=== PATIENT | female | born 1990 | race Hispanic/Latino ===

== ENCOUNTER 2020-02-22 12:58 | Outpatient (CLI) | payer OTHER ==
--- NOTE | 2020-02-22 15:05 | ULT ---
EXAM: COMPLETE OB ULTRASOUND GREATER THAN 14 WEEKS: 02/22/20 HISTORY: anatomy, cervical length. FINDINGS: single viable intrauterine fetus is noted with transverse lie with head on the maternal right s anjana. Placenta is anterior and fundal. heart rate 140 bpm. Amniotic fluid within normal limits. Cervical length 4.6 cm. anatomy: Visualized brain, four chamber heart, three vessel cord, stomach, bladder, kidneys, spine, and extremity regions are unremarkable. biometry: BPD 4.9 cm - - 20 weeks, 6 days Head circumference 18 cm - - 20 weeks, 3 days Abdominal circumference 15.5 cm - - 20 weeks, 5 days Femur length 3.3 cm - - 20 weeks, 2 days IMPRESSION: Single viable intrauterine fetus 20 weeks, 4 days of gestation. ADAMS 06/30/2020. Estimated weight 357 grams. POS: OFF
== END 2020-02-22 12:59 | disposition home or self-care (01) ==
LOC: BICULT 12:58
PROVIDERS: ATTEND Family Medicine
DX: Z34.02 Encounter for supervision of normal first pregnancy, second trimester (principal); Z3A.20 20 weeks gestation of pregnancy
CPT/HCPCS: 76805

== ENCOUNTER 2020-04-13 16:21 | Day surgery (SDC) | payer OTHER ==
[2020-04-13] MEDS ORDERED: hydrALAZINE 20 MG/ML VIAL SLOW IVP PRN (17:38)
[2020-04-13 18:43] LABS: Bacteria/HPF None Seen HPF (None Seen); Bilirubin Negative (Negative); Blood, Urine Negative (Negative); Clarity Clear (Clear); Glucose, Urine (Dipstick) Normal (Negative); Ketone, Urine 80 mg/dL (Negative); Leukocyte Negative Leu/uL (Negative); Nitrite Negative (Negative); Protein, Urine (Dipstick) 10 mg/dL (Neg-Trace); RBC/HPF 0-3 HPF (0-3); Specific Gravity, Urine 1.021 (1.002-1.036); Squamous Epithelial 0-3 HPF (0-3); Urobilinogen Normal mg/dL (Less than 2); WBC/HPF 0-3 HPF (0-3); pH, Urine 5.5 (5.0-9.0)
[2020-04-13 18:58] LABS: Urine Culture Reflex No No
--- NOTE | 2020-04-14 07:00 | PRG ---
DATE OF SERVICE: 04/13/2020 TIME OF SERVICE: 1905 hours. PRESENTING COMPLAINT: A 28 weeks 4 days complaining of urinary frequency and vaginal pressure. She denies bleeding, fever, chills, nausea, or vomiting. The patient has had uncomplicated . OB HISTORY: O positive. Antibody negative. Pap negative. Rubella immune. VDRL nonreactive. Hepatitis B, GC, chlamydia negative. MEDICAL HISTORY: None. SURGICAL HISTORY: None. ALLERGIES: NONE. MEDICATIONS: vitamins. SOCIAL HISTORY: Denies tobacco, alcohol, or drug use. FAMILY HISTORY: Noncontributory. REVIEW OF SYSTEMS: Noncontributory. PHYSICAL EXAMINATION: GENERAL: female, in no acute distress. VITAL SIGNS: Blood pressure 124/77, pulse 69, respirations 14, and temperature 98.1. HEENT: Within normal limits. LUNGS: Clear to auscultation bilaterally. HEART: Regular rate and rhythm. ABDOMEN: Soft and nontender. FHTs 140s. Fundal height 29. No CVA tenderness noted. Vulva without lesions, vagina without discharge, cervix closed long and high. EXTREMITIES: Without clubbing, cyanosis, or edema. LABORATORY DATA: The patient had a cath UA performed, which revealed specific gravity 1.02, 10 urine protein, normal glucose, 80 ketones, no rbc's, no wbc's, no bacteria. IMPRESSION: 1. Discomforts of . 2. Mild dehydration. 3. No evidence of urinary tract infection. 4. 28 weeks to 29 weeks gestation. PLAN: P.o. hydration encouraged. Discharge home. Keep scheduled followup. Job ID: [id number]
[2020-04-14] MEDS ORDERED: FLU VACC QS2020-21(6MOS UP)/PF 60 MCG/0.5 ML SYRINGE IM ONE (09:00)
== END 2020-04-13 19:15 ==
LOC: L&D/OP 16:21
PROVIDERS: ATTEND Family Medicine
DX: O26.893 Other specified pregnancy related conditions, third trimester (principal); R10.2 Pelvic and perineal pain; R35.0 Frequency of micturition; O99.283 Endocrine, nutritional and metabolic diseases complicating pregnancy, third trimester; E86.0 Dehydration; Z3A.28 28 weeks gestation of pregnancy
CPT/HCPCS: 81001

== ENCOUNTER 2020-06-09 16:57 | Inpatient (IN) | payer OTHER, SELFPAY ==
[~2020-06-09 16:57] MED LIST: Bupivacaine 0.25% HCL 30 ML VIAL ONE
[2020-06-09] MEDS ORDERED: hydrALAZINE 20 MG/ML VIAL SLOW IVP PRN (17:54)
[2020-06-09] MEDS ORDERED: Promethazine HCl 25 MG/ML VIAL IM PRN (17:54)
[2020-06-09] MEDS ORDERED: Carboprost 250 MCG/ML AMP IM PRN (17:54)
[2020-06-09] MEDS ORDERED: Butorphanol Tartrate 1 MG/ML VIAL SLOW IVP PRN (17:54)
[2020-06-09] MEDS ORDERED: NS w/ Oxytocin 30 units 500 ML IV PRN (17:54)
[2020-06-09] MEDS ORDERED: Lidocaine 1% (PF) 30 ML VIAL SC PRN (17:54)
[2020-06-09] MEDS ORDERED: Ondansetron PF 4 MG/2 ML Vial IVP PRN (17:54)
[2020-06-09] MEDS ORDERED: Diphenoxylate HCl/Atropine Tablet PO PRN (17:54)
[2020-06-09] MEDS ORDERED: Methylergonovine 0.2 MG/ML VIAL IM PRN (17:54)
[2020-06-09] MEDS ORDERED: Ibuprofen 800 MG TAB PO PRN (17:54)
[2020-06-09] MEDS ORDERED: Misoprostol 200 MCG TAB PR PRN (17:54)
[2020-06-09] MEDS ORDERED: HYDROcodone/Acetaminophen 5/325 mg Tablet PO PRN (17:54)
[2020-06-09] MEDS ORDERED: NS w/ Oxytocin 30 units 500 ML IVPB SCH ×2 (18:15)
[2020-06-09 18:17] VITALS: BMI 38.2
[2020-06-09 18:31] LABS: Hemoglobin 12.8 g/dL (12.0-16.0); Mean Corpuscular HGB CONC 33.7 g/dL (32.0-36.0); Mean Corpuscular Hemoglobin 30.8 pg (27.0-31.0); Mean Corpuscular Volume 91.3 fL (78.0-98.0); Mean Platelet Volume 9.8 fL (7.4-10.4); Platelet Count 245 thou/uL (130-400); Red Blood Cell (RBC) Count 4.18 mill/uL (4.20-5.40); White Blood Cell (WBC) Count 13.1 thou/uL (4.8-10.8)
[2020-06-09 19:07] LABS: HBSAg Index 0.17 S/CO (0-0.99); Hep B Surf Ag Non-Reactive S/CO (NonReactive); Syphilis Antibody Nonreactive (Nonreactive); Syphilis Antibody Index 0.03 S/CO (<1.00 Non-Reactive)
[2020-06-09 19:10] LABS: ALT (SGPT) 91 U/L (8-55); AST (SGOT) 103 U/L (5-34); Albumin 3.3 g/dL (3.5-5.0); Alkaline Phosphatase 374 U/L (40-110); Anion Gap 17 mmol/L (10-20); BUN (Urea Nitrogen) 8 mg/dL (7.0-18.7); Bilirubin, Total 0.4 mg/dL (0.2-1.2); Calc. Creatinine Clearance 139 mL/min (70-130); Calcium 8.6 mg/dL (7.8-10.44); Carbon Dioxide 18 mmol/L (22-29); Chloride 107 mmol/L (98-107); Globulin 3.4 g/dL (2.4-3.5); Glucose 108 mg/dL (70-105); Potassium 4.3 mmol/L (3.5-5.1); Protein, Total 6.7 g/dL (6.0-8.3); Sodium 138 mmol/L (136-145)
[2020-06-09] MEDS: Misoprostol 100 MCG TAB VAG SCH (21:05)
[2020-06-09 21:42] LABS: Protein, Urine Random Quant Less than 10 mg/dL (1-14)
[2020-06-10] MEDS: Misoprostol 100 MCG TAB VAG SCH ×3 (00:05→17:17)
[2020-06-10 04:45] LABS: SARS-CoV-2 MS2 Positive; SARS-CoV-2 N Gene Negative; SARS-CoV-2 S Gene Negative; SARS-CoV-2 by NAA Not Detected (NotDetected); SARS-CoV-2 orf1ab Negative
[2020-06-10] MEDS ORDERED: Terbutaline Sulfate 1 MG/ML VIAL ONE (06:13)
[2020-06-10] MEDS: Lactated Ringer's 1,000 ML IV SCH ×2 (06:22→17:18)
[2020-06-10] MEDS ORDERED: DISCONTINUE ALL PREVIOUS NARCOTICS FS SCH (09:15)
[2020-06-10] MEDS ORDERED: Bupivacaine 0.5% 20 ML, fentaNYL Citrate/PF 400 MCG in Sodium Chloride 0.9% 72 ML EPIDURAL SCH (09:15)
[2020-06-10] MEDS ORDERED: Acetaminophen 325 MG TAB PO PRN (10:07)
[2020-06-10] MEDS ORDERED: diphenhydrAMINE 50 MG/ML VIAL IVP PRN (10:07)
[2020-06-10] MEDS ORDERED: Naloxone HCl 0.4 mg/ml Vial IVP PRN ×2 (10:07)
[2020-06-10] MEDS ORDERED: Ondansetron PF 4 MG/2 ML Vial IVP PRN ×2 (10:07→13:49)
[2020-06-10] MEDS ORDERED: Lactated Ringer's 500 ML IV PRN (10:07)
[2020-06-10] MEDS ORDERED: Promethazine HCl 25 MG/ML VIAL IM PRN ×2 (10:07→13:49)
[2020-06-10] MEDS ORDERED: ePHEDrine 50 MG/ML VIAL SLOW IVP PRN (10:07)
[2020-06-10] MEDS ORDERED: Communication Order-Pharmacy FS SCH (10:15)
[2020-06-10] MEDS ORDERED: Fentanyl 4 mcg/Bupivacaine 0.1% Cassette 100 ML EPIDURAL SCH (10:15)
[2020-06-10] MEDS ORDERED: cloNIDine 0.1 MG TAB PO PRN (13:49)
[2020-06-10] MEDS ORDERED: NS / Oxytocin 40 units/1000ml 1,000 ML IV SCH (13:49)
[2020-06-10] MEDS ORDERED: hydrALAZINE 20 MG/ML VIAL SLOW IVP PRN (13:49)
[2020-06-10] MEDS ORDERED: diphenhydrAMINE 25 MG CAP PO PRN (13:49)
[2020-06-10] MEDS ORDERED: Milk Of Magnesia 30 ML UDCUP PO PRN (13:49)
[2020-06-10] MEDS ORDERED: HYDROcodone/Acetaminophen 5/325 mg Tablet PO PRN ×2 (13:49)
[2020-06-10] MEDS ORDERED: Adacel (T-DAP) 0.5 ML SYRINGE IM ONE (13:49)
[2020-06-10] MEDS ORDERED: Bisacodyl 10 MG SUPP PR PRN (13:49)
[2020-06-10] MEDS ORDERED: Benzocaine-Menthol 82.5 ML CAN TOP PRN (13:49)
[2020-06-10] MEDS ORDERED: Lanolin Ointment 7 GM TUBE TOP PRN (13:49)
[2020-06-10] MEDS: Ferrous Sulfate 325 MG TAB PO SCH (17:18)
[2020-06-10] MEDS: Ibuprofen 800 MG TAB PO SCH ×2 (17:18→21:42)
[2020-06-10] MEDS: Docusate Calcium (SURFAK) 240 MG CAP PO SCH (21:42)
[2020-06-11] MEDS: Ibuprofen 800 MG TAB PO SCH ×3 (05:15→21:26)
[2020-06-11] MEDS: Docusate Calcium (SURFAK) 240 MG CAP PO SCH ×2 (09:10→21:26)
[2020-06-11] MEDS: Ferrous Sulfate 325 MG TAB PO SCH ×2 (09:10→16:43)
[2020-06-11] MEDS: Prenatal Vitamin 1 TAB PO SCH (09:10)
[2020-06-12] MEDS: Ibuprofen 800 MG TAB PO SCH ×2 (05:42→13:58)
[2020-06-12] MEDS: Docusate Calcium (SURFAK) 240 MG CAP PO SCH (08:46)
[2020-06-12] MEDS: Prenatal Vitamin 1 TAB PO SCH (08:46)
[2020-06-12] MEDS: Ferrous Sulfate 325 MG TAB PO SCH ×2 (08:47→16:40)
[2020-06-12 16:40] VITALS: BP 114/58; TEMP 98.3
== END 2020-06-12 20:18 | disposition home or self-care (01) | DRG 805 ==
LOC: L&D/OP 16:57 → L&D 17:55 → 3SW 06-10 15:47
PROVIDERS: ADMIT Family Medicine; ATTEND Family Medicine
PROC: 10E0XZZ Delivery of Products of Conception, External Approach (ICD-10-PCS; principal; 2020-06-10)
PROC: 10907ZC Drainage of Amniotic Fluid, Therapeutic from Products of Conception, Via Natural or Artificial Opening (ICD-10-PCS; 2020-06-10)
PROC: 3E0P7VZ Introduction of Hormone into Female Reproductive, Via Natural or Artificial Opening (ICD-10-PCS; 2020-06-10)
PROC: 0HQ9XZZ Repair Perineum Skin, External Approach (ICD-10-PCS; 2020-06-10)
DX: O26.62 Liver and biliary tract disorders in childbirth (principal); K83.1 Obstruction of bile duct; Z37.0 Single live birth; O70.0 First degree perineal laceration during delivery; Z3A.36 36 weeks gestation of pregnancy
CPT/HCPCS: 36415; 51702; 80053; 82570; 84156; 85027; 86780; 86850; 86900; 86901; 87340; 87635; 88307; J3010; J3105; J3490; S0020; U0003